=== PATIENT | female | born 1950 | race Caucasian/White ===

== ENCOUNTER → 2019-08-28 17:16 | Outpatient (BNVA) | payer MEDICARE, SELFPAY | PROVIDERS: Family Provider Nurse Practitioner Family; PCP Nurse Practitioner Family; Visit Provider Internal Medicine Cardiovascular Disease | DX: I25.10 Atherosclerotic heart disease of native coronary artery without angina pectoris (principal) | CPT/HCPCS: 80048; 83880; 85025 ==

== ENCOUNTER 2019-09-10 06:52 | Outpatient (CLI) | payer MEDICARE, SELFPAY ==
--- NOTE | 2019-09-10 07:15 | USCV_ITS ---
Leslie Marcelo Age: 69 Gender: F : 1950 Exam Date: 09/10/2019 06:08 Ordering Phys: Luana Kaur MD ([email or web address]) Technologist: Keli Dutta Exam Location: [facility] [place] Indication: CAD BP: / HR: 60 Rhythm: Sinus Technical Quality: Suboptimal MEASUREMENTS (Male / Female) Normal Values 2D ECHO LV Diastolic Diameter PLAX 4.6 cm 4.2 - 5.9 / 3.9 - 5.3 cm LV Systolic Diameter PLAX 3.1 cm IVS Diastolic Thickness 1.1 cm 0.6 - 1.0 / 0.6 - 0.9 cm IVS Systolic Thickness 1.8 cm LVPW Diastolic Thickness 1.1 cm 0.6 - 1.0 / 0.6 - 0.9 cm LVPW Systolic Thickness 1.6 cm LVOT Diameter 2.0 cm LV Ejection Fraction 2D Teich 62.4 % LV Ejection Fraction MOD 2C 59.1 % LV Ejection Fraction 2C AL 60.5 % LA Diameter 4.1 cm LA Width 3.4 cm LA Height 5.3 cm RA Width 3.5 cm RA Height 4.3 cm Aorta at Sinotubular Diameter 2.8 cm M-MODE LV Diastolic Diameter MM 5.5 cm 4.2 - 5.9 / 3.9 - 5.3 cm LV Systolic Diameter MM 3.5 cm LV Ejection Fraction MM Teich 65.2 % IVS Diastolic Thickness MM 0.9 cm 0.6 - 1.0 / 0.6 - 0.9 cm IVS Systolic Thickness MM 1.4 cm LVPW Diastolic Thickness MM 0.9 cm 0.6 - 1.0 / 0.6 - 0.9 cm LVPW Systolic Thickness MM 1.1 cm Aortic Annulus Diameter 3.2 cm LA Ao Ratio MM 1.3 MV E Point Septal Separation 0.7 cm DOPPLER AV Peak Velocity 175.0 cm/s LVOT Peak Velocity 96.0 cm/s AV Area Cont Eq vti 1.6 cm squared AV Area Cont Eq pk 1.7 cm squared MV Area PHT 1.7 cm squared Mitral E to A Ratio 0.9 MV E' Velocity 9.0 cm/s Mitral E to MV E' Ratio 10.3 Mitral E to LV E' Lateral Ratio 9.9 Mitral E to LV E' Septal Ratio 10.8 TV Peak E Velocity 55.0 cm/s Right Atrial Pressure 3.0 mmHg PV Peak Velocity 114.0 cm/s RV Acceleration Time 0.1 s RV Ejection Time 0.3 s RV AcT/ET 0.3 FINDINGS Left Ventricle Normal left ventricular cavity size. Normal left ventricular systolic function. No regional wall motion abnormalities. Left ventricular ejection fraction is estimated at 62 %. Grade I/IV diastolic dysfunction (abnormal relaxation filling pattern), normal to mildly elevated filling pressures. Right Ventricle The right ventricle is normal in size and function. RVSP could not be calculated due to incomplete tricuspid regurgitation velocity profile. Right Atrium The right atrium is normal in size. Left Atrium The left atrium is normal in size. Mitral Valve Structurally normal mitral valve without significant stenosis or prolapse. There is no mitral regurgitation. Aortic Valve Moderate aortic valve calcification. Mild aortic valve stenosis, mean gradient 6.2 mmHg, DANIEL 1.6 cm squared. Trace aortic valve regurgitation. Tricuspid Valve Trace tricuspid valve regurgitation. Pulmonic Valve Structurally normal pulmonic valve without significant stenosis. There is no pulmonic regurgitation. Pericardium Normal pericardium without effusion. Aorta Normal ascending aorta dimension. CONCLUSIONS 1-Normal left ventricular cavity size. Normal left ventricular systolic function. No regional wall motion abnormalities. Left ventricular ejection fraction is estimated at 62 %. Grade I/IV diastolic dysfunction (abnormal relaxation filling pattern), normal to mildly elevated filling pressures. 2-Moderate aortic valve calcification. Mild aortic valve stenosis, mean gradient 6.2 mmHg, DANIEL 1.6 cm squared. Trace aortic valve regurgitation. 3-Structurally normal mitral valve without significant stenosis or prolapse. There is no mitral regurgitation. 4-The right ventricle is normal in size and function. RVSP could not be calculated due to incomplete tricuspid regurgitation velocity profile. 5-There is no pericardial effusion. 6-Right atrial pressure is around 5 mm of mercury. 7-There are no prior echocardiogram studies to compare. Luana Kaur MD (Electronically Signed) Final Date: 11 September 2019 18:32 S
== END 2019-09-10 06:53 | disposition home or self-care (01) ==
PROVIDERS: Family Provider Nurse Practitioner Family; PCP Nurse Practitioner Family; Visit Provider Internal Medicine Cardiovascular Disease
DX: I25.10 Atherosclerotic heart disease of native coronary artery without angina pectoris (principal); I08.2 Rheumatic disorders of both aortic and tricuspid valves; R06.02 Shortness of breath
CPT/HCPCS: 93306

== ENCOUNTER → 2019-09-18 08:31 | Day surgery (SDC) | payer MEDICARE, SELFPAY ==
[2019-09-18] VITALS (11 sets, daily range): BP systolic 131–173; BP diastolic 61–101; PULSE 57–66; RESP 16–18; TEMP 36.5; O2SAT 94–98
--- NOTE | 2019-09-18 09:00 | XACV_ITS ---
Ht: 160 cm Wt: 98 kg BSA: 2.14 m2 Gender: Female : 1950 Any Known Allergies: Other Exam Priority: Routine Procedure(s): Procedure Description: Diagnostic procedure Procedure Description: Left Heart Catheterization Procedure Description: Left ventriculography Diagnostic Cath Status: Urgent Diagnostic Findings LM has 0% stenosis. dLAD: Severe 80% stenosis, GAIL: 2 flow. 2nd Diag: Moderate 50% stenosis, GAIL: 3 flow. pCIRC: Severe 80% stenosis, GAIL: 3 flow. 1st OM: Severe 100% stenosis, GAIL: 0 flow. pRCA to dRCA: Severe 100% stenosis, GAIL: 0 flow. Three grafts visualized. FARRELL to dLAD: patent. SVG to dCIRC: patent. SVG to RPAV: 100% stenosis, GAIL: 0 flow. Coronary angiography shows right dominance. Conclusions There is severe coronary artery disease with three vessel disease. two grafts patent, and one graft diseased. Patient has prior CABG. Normal left ventricular systolic function. Ejection fraction of 60%. Indication for coronary angiogram: Worsening of chest pain shortness of breath and angina after history of coronary artery bypass surgery despite of maximal medical management. Recommendations Continue current medical management and risk factor modification. Diagnostic RX Recommendation: medical therapy and/or counseling Ejection Fraction: 60.0 % Pressures Phase:Rest AO : 96 mmHg / 34 mmHg ( 60 mmHg ) @ 5:59:00 AM 99 mmHg / 33 mmHg ( 61 mmHg ) @ 5:59:00 AM LV : 125 mmHg / 16 mmHg / @ 5:57:00 AM 116 mmHg / 16 mmHg / @ 5:57:00 AM 104 mmHg / -15 mmHg / @ 5:59:00 AM 104 mmHg / -15 mmHg / @ 5:59:00 AM Valves Phase:DefaultPhase AV : 5.0 mmHg @ 11:25:46 AM AV Mean Gradient: 10.0 mmHg @ 11:25:46 AM Clinical Evaluation EBL: 5mL-10mL Procedural Details Procedure Consent Obtained. Admit Source: In Patient. Pre-Procedure Time Out. Identified patient by full name and date of as verbalized by the patient/guarantor. Does the consent match the physician's order: Yes. Accurate & Complete Informed Consent: Yes. Inpatient/Outpatient History & Physical on Chart: Yes. If H&P is completed, is and addenduem needed: N/A; If yes, is the addendum complete: N/A. Visualize and Verify Site with Patient/Guarantor: N/A. Relevant Radiology Images available: N/A. Pre-op teaching completed and patient verbalized understanding. The risks, benefits, and alternatives of sedation and/or procedure were discussed by physician. The patient agrees to continue. Procedure started. Correct patient, site and procedure confirmed by cath team. PERRLA. Strong, equal hand stable hand bilaterally. Lungs clear x 5 lobes. IV Site on Arrival: 20 gauge in the right forearm. Pre Procedural Pulses: bilateral dorsalis pedis was 1+. Pre Procedural Pulses: bilateral posterior tibial was 1+. Pre Procedural Pulses: bilateral radial was 2+. Oxygen started at 2liters/min via nasal canula. bilateral groins was prepped with chloroprep then draped in the usual sterile fashion. Baseline sample Acquired. HR: 64 BPM. Physician notified. Physician arrived. CRD 5F Multi-pac Diagnostic Catheter. Physician scrubbed in. Immediate Pre-Procedure Time Out. Correct Patient: Yes; Correct Procedure: Yes; Correct Site: Yes; Correct Patient Position: Yes; Correct Supplies: Yes; Dried Flammable Prep: Yes; Blood Products Available: N/A;. Lidocaine 1% infiltrated to the right groin. Arterial access obtained with micropuncture set. A 5 rwandan JL4 catheter in over wire. Multiple views taken of left coronary artery. Catheter out. A 5 rwand[place] JR4 catheter in over wire. Multiple views taken of right coronary artery. Catheter redirected from the SVG to the OM. Inventory is JJ Standard Exchange J-Tip Guidewire .035 260cm. Multiple views taken of the FARRELL. A 5 rwandan Angled Pig catheter in over wire. EDP Sample taken: LV 125/16,8; HR: 137 BPM; SpO2: 97%. LV gram performed in GLEZ @ 10 mL/second for a total of 30 mL. EDP Sample taken: LV 104/-16,6; HR: 59 BPM; SpO2: 99%. Pullback taken: LV 104/-16,6; AO 96/34(60); Mean: 10mmHg, Peak to Peak: 5mmHg, SEP: 19sec/min; HR: 64 BPM; SpO2: 99%. hand injection performed. deploying a 6F ProGlide closing device. Perclose placed without complications. No signs or symptoms of hematoma noted. Sterile dressing applied per usual sterile fashion. PERRLA. Strong, equal hand stable hand bilaterally. No VTE prophylaxis required. Contrast type used: Omnipaque 300 mgI/mL, 500 mL bottle. Contrast Material : Visipaque 166 ml. Complications: none. Estimated blood loss: 5mL-10mL. Medication's Wasted: Heparin = 1000 units. Total IV fluids: 50 mL. A Perclose ([employer]) was successful obtaining hemostatsis at the Right Femoral artery insertion site. [facility] Clinical Fraility Score: 4: Vulnerable. Nurse Gynecology Indications: New Onset Angina. Chest Pain Symptom Assessment: Typical Angina Symptoms. Cardiovascular Instability: No. Post-op diagnosis: severe multivessel disease with closed vessel. Three grafts. Procedure completed. Patient transferred by bed to CPRU. Vital chart was stopped. Site: Right Femoral artery Sheath Size: 6 Fr Hemostasis Method: Perclose ([employer]) Hemostasis Success: Successful Procedure Medications Start: 10:28 AM Stop: 10:28 AM Medication: Versed Amount: 1 mg Route: I.V. Start: 10:28 AM Stop: 10:28 AM Medication: Fentanyl Amount: 50 mcg Route: I.V. Start: 10:33 AM Stop: 10:33 AM Medication: Versed Amount: 1 mg Route: I.V. Start: 10:49 AM Stop: 10:49 AM Medication: Fentanyl Amount: 50 mcg Route: I.V. I, the attending physician, have reviewed and verified all procedure medications. Yes, all medications given per verbal order History/Risk Factors Hypertension: Yes Dyslipidemia: Yes Diabetic Therapy: Oral Peripheral Arterial Disease (PAD): No Myocardial Infarction (CA): No Obesity: Yes Renal Disease: No Prior Interventions PCI: No CABG: Yes Valve Surgery: No Report Signatures Finalized by:Luana Kaur MD on 09/19/2019 9:44:44 PM
[2019-09-18] MEDS: diphenhydrAMINE 50 mg Capsule PO (09:26)
[2019-09-18 10:07] LABS: Basophils # 0.1 10^3/uL (0.0-0.1); Basophils % 0.4 %; Eosinophils # 0.5 10^3/uL (0.0-0.8); Hematocrit 36.4 % (37.0-47.0); Hemoglobin 11.8 g/dL (11.5-15.3); Lymphocytes # 2.6 10^3/uL (0.8-4.8); Lymphocytes % 23.2 %; Mean Corpuscular HGB Conc 32.4 g/dL (30.0-36.0); Mean Corpuscular Hemoglobin 28.6 pg (28.0-34.0); Mean Corpuscular Volume 88.3 fL (81-99); Mean Platelet Volume 9.6 fL (7.4-10.4); Monocytes # 0.6 10^3/uL (0.2-0.9); Monocytes % 4.9 %; Neutrophils # 7.6 10^3/uL (1.8-7.7); Neutrophils % 66.7 %; Nucleated Red Blood Cells % 0 %; Platelet Count 314 10^3/cmm (130-400); Red Blood Count 4.12 10^6/uL (4.1-5.3); Red Cell Distribution Width 13.5 % (12.1-15.1); White Blood Count 11.3 10^3/uL (4.0-10.0)
[2019-09-18 10:25] LABS: Anion Gap 16.2 (5-19); Blood Urea Nitrogen 16 mg/dL (8-23); Carbon Dioxide 25 mmol/L (22-29); Chloride 102 mmol/L (98-107); Glomerular Filtration Rate 55.3 mL/min (90-130); Glucose 124 mg/dL (65-115); Osmolality Calculated 286 mOsm/kg (285-295); Potassium 4.2 mmol/L (3.5-5.1); Sodium 139 mmol/L (136-145)
--- NOTE | 2019-09-18 15:00 | PC.NURSE ---
Ambulated Pt ambulated in leo at this time. No bleeding or hematoma noted to R femoral access site. Sitting up in chair at this time. Will monitor.
== END | disposition home or self-care (01) ==
PROVIDERS: Family Provider Nurse Practitioner Family; PCP Nurse Practitioner Family; Visit Provider Internal Medicine Cardiovascular Disease
DX: R06.02 Shortness of breath (principal); I25.110 Atherosclerotic heart disease of native coronary artery with unstable angina pectoris
CPT/HCPCS: 36415; 80048; 85025; 93459; C1760; C1769; C1887; C1894; J1644; J2001; J2250; J3010; Q0163; Q9967

== ENCOUNTER → 2019-09-26 12:03 | Outpatient (BNVA) | payer MEDICARE, SELFPAY | PROVIDERS: Family Provider Nurse Practitioner Family; PCP Nurse Practitioner Family; Visit Provider Nurse Practitioner Family | DX: I25.10 Atherosclerotic heart disease of native coronary artery without angina pectoris (principal) | CPT/HCPCS: 80048 ==

== ENCOUNTER 2022-08-29 10:22 | Outpatient (CLI) | payer MEDICARE, SELFPAY ==
--- NOTE | 2022-08-29 10:38 | MR_ITS ---
WS: [id number] MRI BRAIN WITH HIGH-RESOLUTION IMAGING THROUGH THE INTERNAL AUDITORY CANALS WITHOUT AND WITH CONTRAST HISTORY: SENSORINEURAL HEARING Loss, bilateral/dizziness GIDDINESS COMPARISON: None available. TECHNIQUE: Multiplanar, multisequence imaging is performed through the brain. Additional 3 mm imaging performed in multiple planes through the internal auditory canal. Postcontrast imaging with 18 ml's of MultiHance. No acute intracranial hemorrhage, midline shift, edema or mass effect. Mild atrophy with moderate small vessel ischemic changes in the periventricular white matter. Small l acunar infarct in the RIGHT caudate. No large territory infarct. There is a nonenhancing fluid collec tion which follows CSF on all sequences over the RIGHT frontal lobe. Mass measures 3.0 x 5.0 cm and c onsistent with an arachnoid cyst. There is no enhancement and only mild mass effect upon the brain wi th slight volume loss. Ventricles and extra-axial spaces are normal. No inferior displacement of cerebellar tonsils. Clivus and pituitary gland are normal. Internal and external auditory canals: Unremarkable. Cranial nerves VII and VIII complexes: Unremarkable. No enhancement or mass. Cerebellopontine angles: Normal. Paranasal sinuses: Normal. Mastoid air cells: Normal. Calvarium and scalp: Normal. Absent distal RIGHT vertebral artery. LEFT vertebral artery is dominant. MR/MR iac's wo/w con* [id number] IMPRESSION: 1. No masses or signal abnormality at the cerebellopontine angle or in the int ernal auditory canals. 2. Mild atrophy with moderate small vessel ischemic disease. 3. RIGHT frontal arachnoid cyst.
[2022-08-29] MEDS: gadobenate dimeglumine 20 mL vial IV (11:51)
== END 2022-08-29 10:23 | disposition home or self-care (01) ==
PROVIDERS: PCP Nurse Practitioner Family; Visit Provider Specialist
DX: H93.11 Tinnitus, right ear (principal)
CPT/HCPCS: 70553; A9577

== ENCOUNTER → 2024-12-02 13:06 | Outpatient (BNVA) | payer MEDICARE, SELFPAY | PROVIDERS: PCP Nurse Practitioner Family; Referring Provider Nurse Practitioner Family; Visit Provider Internal Medicine Cardiovascular Disease | DX: I25.810 Atherosclerosis of coronary artery bypass graft(s) without angina pectoris (principal); E78.49 Other hyperlipidemia; I89.0 Lymphedema, not elsewhere classified; M19.90 Unspecified osteoarthritis, unspecified site; J44.9 Chronic obstructive pulmonary disease, unspecified; I11.0 Hypertensive heart disease with heart failure; I50.9 Heart failure, unspecified; Z87.891 Personal history of nicotine dependence | CPT/HCPCS: 99214 ==

== ENCOUNTER → 2025-06-09 14:23 | Outpatient (BNVA) | payer MEDICARE, SELFPAY | PROVIDERS: PCP Nurse Practitioner Family; Visit Provider Internal Medicine Cardiovascular Disease | DX: I25.10 Atherosclerotic heart disease of native coronary artery without angina pectoris (principal); E78.5 Hyperlipidemia, unspecified; E11.9 Type 2 diabetes mellitus without complications; J44.9 Chronic obstructive pulmonary disease, unspecified; Z87.891 Personal history of nicotine dependence; I11.0 Hypertensive heart disease with heart failure; I50.9 Heart failure, unspecified; Z79.84 Long term (current) use of oral hypoglycemic drugs | CPT/HCPCS: 99214 ==